=== PATIENT | male | born 1940 | race Caucasian/White ===

== ENCOUNTER → 2018-07-08 | Outpatient (CLI) | payer OTHER ==
[~2018-07-08] MED LIST: REGADENOSON 0.4 MG/5 ML SYRINGE ONE
== END | disposition home or self-care (01) ==
LOC: RAD 10:28
PROVIDERS: ATTEND Internal Medicine Cardiovascular Disease
DX: I21.19 ST elevation (STEMI) myocardial infarction involving other coronary artery of inferior wall (principal); I25.89 Other forms of chronic ischemic heart disease; I48.91 Unspecified atrial fibrillation; Z95.0 Presence of cardiac pacemaker
CPT/HCPCS: 78452; 93017; A9502; J2785